=== PATIENT | female | born 1990 | race Hispanic/Latino ===

== ENCOUNTER 2020-11-14 15:55 | Observation (INO) | payer BC ==
[2020-11-14] MEDS ORDERED: Bupivacaine 0.25% HCL 30 ML VIAL ONE (16:40)
[2020-11-14] MEDS ORDERED: Lidocaine 1% w/Epinephrine 1:100K 20 ML VIAL ONE (16:40)
[2020-11-14] MEDS ORDERED: Fentanyl 100 MCG/2 ML VIAL ONE ×3 (17:00→19:30)
[2020-11-14] MEDS ORDERED: Lidocaine 1% PF 5 ML VIAL ONE (17:20)
[2020-11-14] MEDS ORDERED: PROPOFOL 200 MG/20 ML VIAL ONE (17:20)
[2020-11-14] MEDS ORDERED: Dexamethasone 20 MG/5 ML VIAL ONE (17:20)
[2020-11-14] MEDS ORDERED: Rocuronium Bromide 10 MG/ML (10ML VIAL) ONE (17:20)
[2020-11-14] MEDS ORDERED: Ondansetron PF 4 MG/2 ML Vial ONE (17:20)
[2020-11-14] MEDS ORDERED: Glycopyrrolate 0.2 MG/ML 5 ML SYRINGE ONE (17:20)
[2020-11-14] MEDS ORDERED: HYDROcodone/Acetaminophen 5/325 mg Tablet ONE (18:58)
[2020-11-14] MEDS ORDERED: Ketorolac Tromethamine 30 MG/ML VIAL ONE (18:59)
[2020-11-14] MEDS ORDERED: Morphine 4 MG/ML VIAL ONE (19:46)
[2020-11-14] MEDS ORDERED: HYDROmorphone 0.5 MG/0.5 ML SYRINGE ONE ×2 (19:56→20:00)
[2020-11-14 20:13] VITALS: BMI 30.9
[2020-11-14] MEDS ORDERED: Zolpidem Tartrate 5 MG TAB PO PRN (20:15)
[2020-11-14] MEDS ORDERED: diphenhydrAMINE 50 MG/ML VIAL IM/IV PRN (20:15)
[2020-11-14] MEDS ORDERED: Fentanyl CADD 100 ML IVPB SCH (20:15)
[2020-11-14] MEDS ORDERED: diphenhydrAMINE 25 MG CAP PO PRN (20:15)
[2020-11-14] MEDS ORDERED: Promethazine HCl 25 MG/ML VIAL IM PRN (20:15)
[2020-11-14] MEDS ORDERED: Ondansetron PF 4 MG/2 ML Vial IVP PRN ×2 (20:15→22:17)
[2020-11-14] MEDS ORDERED: Naloxone HCl 0.4 mg/ml Vial IV PRN (20:15)
[2020-11-14] MEDS: D5 1/2 NS w/20 mEq KCL 1,000 ML IV SCH (22:48)
[2020-11-14] MEDS ORDERED: Ketorolac Tromethamine 30 MG/ML VIAL IVP SCH (23:59)
[2020-11-15] MEDS: Ketorolac Tromethamine 30 MG/ML VIAL IVP SCH ×3 (00:04→11:17)
[2020-11-15 05:32] LABS: #Lymphocytes 0.6 thou/uL (1.20-3.40); #Monocytes 0.1 thou/uL (0.11-0.59); #Neutrophils 7.3 thou/uL (1.40-6.50); %Lymphocytes 7.9 % (21.0-51.0); %Monocytes 1.3 % (0.0-10.0); %Neutrophils 90.8 % (42.0-75.0); Hemoglobin 11.2 g/dL (12.0-16.0); Mean Corpuscular HGB CONC 32.9 g/dL (32.0-36.0); Mean Corpuscular Hemoglobin 26.4 pg (27.0-31.0); Mean Corpuscular Volume 80.4 fL (78.0-98.0); Mean Platelet Volume 9.7 fL (7.4-10.4); Platelet Count 209 thou/uL (130-400); Red Blood Cell (RBC) Count 4.25 mill/uL (4.20-5.40); White Blood Cell (WBC) Count 8.1 thou/uL (4.8-10.8)
[2020-11-15 05:51] LABS: Anion Gap 14 mmol/L (10-20); BUN (Urea Nitrogen) 10 mg/dL (7.0-18.7); Calc. Creatinine Clearance 154 mL/min (70-130); Calcium 8.2 mg/dL (7.8-10.44); Carbon Dioxide 20 mmol/L (22-29); Chloride 105 mmol/L (98-107); Glucose 150 mg/dL (70-105); Potassium 4.2 mmol/L (3.5-5.1); Sodium 135 mmol/L (136-145)
[2020-11-15] MEDS: D5 1/2 NS w/20 mEq KCL 1,000 ML IV SCH (08:57)
[2020-11-15] MEDS ORDERED: Acetaminophen/Codeine 30-300mg Tablet PO PRN ×2 (10:58→10:59)
[2020-11-15 11:14] VITALS: BP 116/62; TEMP 98.3
== END 2020-11-15 14:15 | disposition home or self-care (01) ==
LOC: SDC 15:55 → SURG A 20:08
PROVIDERS: ADMIT Surgery; ATTEND Surgery
PROC: 0DTJ4ZZ Resection of Appendix, Percutaneous Endoscopic Approach (ICD-10-PCS; principal; 2020-11-14)
DX: K35.80 Unspecified acute appendicitis (principal); K66.1 Hemoperitoneum; G89.18 Other acute postprocedural pain; Z91.018 Allergy to other foods
CPT/HCPCS: 36415; 80048; 85025; 88304; 96374; 96376; G0378; J1100; J1170; J1885; J2270; J2405; J2704; J3010; J3480; S0020